=== PATIENT | female | born 1990 ===

== ENCOUNTER 2018-05-13 20:19 | Inpatient (IN) | payer OTHER ==
[2018-05-13 21:58] VITALS: BMI 32.5
[2018-05-13] MEDS ORDERED: Lactated Ringer's 1,000 ML IV ONE (22:18)
[2018-05-13 23:39] LABS: BASO % 0.2 % (0.0-2.0); EOS # 0.1 K/uL (0.0-0.7); EOS % 1.2 % (0.0-4.0); HEMOGLOBIN 11.9 g/dL (11.0-16.0); LYMPH # 1.9 K/uL (1.0-4.3); LYMPH % 15.7 % (20.0-40.0); MEAN CELL VOLUME 93.1 fL (81.0-99.0); MEAN CORPUSCULAR HEMOGLOBIN 31.6 pg (27.0-31.0); MEAN PLATELET VOLUME 9.5 fL (7.2-11.7); MONO # 1.2 K/uL (0.0-0.8); NEUT % 72.9 % (50.0-75.0); RBC 3.76 Mil/uL (3.80-5.20); RED CELL DISTRIBUTION WIDTH 13.4 % (11.5-14.5); WHITE BLOOD COUNT 12.3 K/uL (4.8-10.8)
--- NOTE | 2018-05-13 23:43 | OBHP ---
Datetime: 05/13/2018 23:40 IP Adm Impression: Term, intrauterine ; Ruptured Membranes IP Admit Plan: Admit to unit; Initiate labor protocol Pelvic Type - PN: Adequate Extremities - PN: Normal Abdomen - PN: Normal Back - PN: Normal Breast - PN: Not Done Lungs - PN: Normal Heart - PN: Normal Thyroid - PN: Normal Neurologic - PN: Normal HEENT - PN: Normal General - PN: Normal FHR - Baseline A Provider: 140's Membranes, Provider: Ruptured Pool Provider: Positive EGA AdmitDate IP: 38.3 Vital Signs Provider: Reviewed; Within Normal Limits IP Indication for Induction: Not Applicable IP Chief Complaint: Uterine contractions; Suspected ruptured membranes; Maternal discomfort NICHD Decel Fetus A IP Provider: None Genitourinary Exam: Normal DTRs - PN: Normal Datetime: 05/13/2018 22:45 Admit Comment, IP Provider: 27 yo female wit an IUP at 38 2/7 weeks and presents with C/O o f a gush of fluid at about 6PM tonite and continues and onset of irregular contractions. Admits to ad equate FM. + Nitrazine and + Pool of fluid in vagina Irregular contractions and early labor GBS Negative and Rh positive with + Antibody screen Pt states that she was referred to [employer] Bar[employer] Finisher and he stated that it was probably from blood brown sfusion at time of femur fracture and Surgery in the past. Admitted in early labor and will augment if indicated Anticipate a vaginal delivery Presentation-Admit: Vertex Amniotic Fluid Color, Provider: Clear Contraction Comments Provider: 3-5 MINS Gestation - Est Wks by US: 38 2/7 NICHD Variability Prov Fetus A: Moderate 6-25bpm NICHD Accel Fetus A IP Provider: 10X10 FHR Category Provider Fetus A: Category I Dilatation, Provider: 2 Effacement, Provider: 50 Station, Provider: -3
--- NOTE | 2018-05-13 23:55 | OBADHP ---
Datetime: 05/13/2018 23:40 Admit Comment, IP Provider: 27 yo female with an IUP at 38 2/7 weeks and presents with a Hx of gush of fluid at about 6PM this evening with onset of irregular contractions. Pt admits to continue L OF and denies VB. Admits to adequate FM. 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 Admitted in early labor and will augment if indicated Anticipate a vaginal delivery Pelvic Type - PN: Adequate Extremities - PN: Normal Abdomen - PN: Normal Back - PN: Normal Breast - PN: Not Done Lungs - PN: Normal Heart - PN: Normal Thyroid - PN: Normal Neurologic - PN: Normal HEENT - PN: Normal General - PN: Normal Presentation-Admit: Vertex FHR - Baseline A Provider: 140's Membranes, Provider: Ruptured Gestation - Est Wks by US: 38 2/7 weeks Pool Provider: Positive Vital Signs Provider: Reviewed; Within Normal Limits IP Chief Complaint: Uterine contractions; Suspected ruptured membranes; Maternal discomfort NICHD Variability Prov Fetus A: Moderate 6-25bpm NICHD Accel Fetus A IP Provider: 10X10 FHR Category Provider Fetus A: Category I NICHD Decel Fetus A IP Provider: None Genitourinary Exam: Normal DTRs - PN: Normal EGA AdmitDate IP: 38.3 IP Adm Impression: Term, intrauterine ; Ruptured Membranes IP Admit Plan: Admit to unit; Initiate labor protocol Datetime: 05/13/2018 22:45 Amniotic Fluid Color, Provider: Clear Contraction Comments Provider: 3-5 MINS IP Hx Assessment: records reviewed Dilatation, Provider: 2 Effacement, Provider: 50 Station, Provider: -3
[2018-05-14] LABS: ALB/GLOB RATIO 1.1 (1.0-2.1); ALBUMIN 3.6 g/dL (3.5-5.0); ALT/SGPT 98 U/L (9-52); AST/SGOT 45 U/L (14-36); BLOOD UREA NITROGEN 9 mg/dL (7-17); CALCIUM 9.6 mg/dl (8.6-10.4); GFR AFRICAN-AMERICAN > 60; GFR NON-AFRICAN AMERICAN > 60
[2018-05-14 00:10] LABS: BARBITURATES, UR NEGATIVE (NEGATIVE); BENZODIAZEPINES, UR NEGATIVE (NEGATIVE); OPIATES, UR NEGATIVE (NEGATIVE); PHENCYCLIDINE, UR NEGATIVE (NEGATIVE)
[2018-05-14] MEDS ORDERED: Bupivacaine HCl/FentaNYL Cit 100 ML EPI ONE ×2 (04:53→12:33)
[2018-05-14] MEDS ORDERED: Oxytocin 30 UNIT 30 UNITS/500 ML BAG IV SCH (06:30)
[2018-05-14 06:32] LABS: SQUAMOUS EPITHIAL 1 /hpf (0-5); URINE AMORPHOUS SEDIMENT RARE /ul (<OCC); URINE BILIRUBIN NEGATIVE (NEGATIVE); URINE BLOOD NEGATIVE (NEGATIVE); URINE CALCIUM OXALATE CRYSTALS FEW /hpf (<OCC); URINE CLARITY Turbid (Clear); URINE COLOR Amber (YELLOW); URINE GLUCOSE (UA) 1+ mg/dL (Normal); URINE LEUKOCYTE ESTERASE NEG Leu/uL (Negative); URINE PROTEIN 1+ mg/dL (NEGATIVE)
[2018-05-14] MEDS ORDERED: Lactated Ringer's 1,000 ML IV SCH (07:00)
--- NOTE | 2018-05-14 07:32 | OBPN ---
Datetime: 05/14/2018 06:07 IP Progress Impression: Normal progression of labor; Reactive non-stress test IP Informed Consent Obtain: Vaginal Delivery IP Progress Plan: Augmentation Nitrazine Provider: Positive Membranes, Provider: Ruptured Amniotic Fluid Color, Provider: Clear Contraction Comments Provider: Q3-4 FHR - Baseline A Provider: 140 Gestation - Est Wks by US: 38 38 3/7 Presentation-Admit: Vertex IP Progress Note Comment: 38 3/7 weeks and admitted with SROM since 1800 last PM Slow progress in labor and Pitocin started for Augmentation of labor GBS Negative Admitting labs reviewed and Midly low K and elevated SGOT and SGPT without elevated BP's Will follow her labs closely Hx of Right Femur Surgery at age 13 with some limitation to perform full leg abduction Hope for a Vaginal Delivery NICHD Accel Fetus A IP Provider: 10X10 FHR Category Provider Fetus A: Category I NICHD Variability Prov Fetus A: Moderate 6-25bpm Dilatation, Provider: 5 Effacement, Provider: 100 Station, Provider: -1 NICHD Decel Fetus A IP Provider: None Datetime: 05/13/2018 23:40 Pool Provider: Positive Vital Signs Provider: Reviewed; Within Normal Limits
--- NOTE | 2018-05-14 11:05 | OBPN ---
Datetime: 05/14/2018 10:56 IP Progress Impression Other: Protracted active phase of labor IP Procedures: Sterile Vag Exam IP Progress Plan: Continue present management; Augmentation; Anticipate Vaginal Delivery Membranes, Provider: Ruptured Contraction Comments Provider: 1-2 FHR - Baseline A Provider: 140 Gestation - Est Wks by US: 38w 3d Presentation-Admit: Vertex IP Progress Note Comment: Patient evalauted at 1000 hours; received in LDR#2 - S/P epidural. Report s no pain of Ctx, reports iincreasing vaginal pressure. (+) LOF. (+) FM P.E.: as above. Cervical exam - as above. Pitocin at 8 munits/min Assessment: 27 y.o. P0, 38w 3d PROM at 1800 hours ; now on pitocin. Protracted active phase o f labor. Afebrile, vital signs stable. Category 1 tracing. Clinically stable. Plan: 1) Re-examine in 2 hours. 2) Consider IUPC 3) Consider staring antibiotoics at ROM x 18 hours 4) Anticipate vaginal delivery NICHD Accel Fetus A IP Provider: 10X10 FHR Category Provider Fetus A: Category I NICHD Variability Prov Fetus A: Moderate 6-25bpm Dilatation, Provider: 7 Effacement, Provider: 100 Station, Provider: -1 NICHD Decel Fetus A IP Provider: None
[2018-05-14] MEDS ORDERED: AMPicillin 2 GM in Sodium Chloride 100 ML IVPB SCH (12:15)
[2018-05-14] MEDS ORDERED: BUPIVACAINE HCL EPI ONE (12:44)
[2018-05-14] MEDS ORDERED: Lidocaine 2% MPF (5 ml) Inj ONE (15:48)
[2018-05-14] MEDS ORDERED: Benzocaine/Menthol 20%-0.5% Topical Spray (60 ml) TOP PRN (16:12)
--- NOTE | 2018-05-14 16:20 | OBDS ---
DELIVERY PERSONNEL Delivery Doctor: José Luis Swan MD Scrub Nurse: Chey Reese OBT License Clerk: Yoanna Nix RN Anesthesiologist: MATERNAL INFORMATION Delivery Anesthesia: Epidural Medications in Delivery: Pitocin 30 units IV in 500 NS Estimated Blood Loss (ml): 300 Placenta Cultured: No Maternal Complications: None Provider Comments: Uncomplicated vaginal delivery. live male , DEXTER position, 's 9/9, weig ht 6lb 13oz over intact perineum. Infant's mouth and nose bulb-sucitoned on perineum. Umbilical cord doubly clamped and cut. placed on mother's abdomen for skin to skin. Spontaneous delivery of placenta - grossly intact; 3 vessels present Uterine exploration performed; uterus contracted and firm. Exam cervix, vagina and perineum - laceration as described above noted and repaired. Patient tolerated procedure well. and mother bonding; both in stable condition LABOR SUMMARY EDC: 05/25/2018 00:00 No. Babies in Womb: 1 Attempted: No Labor Anesthesia: None LABOR INFORMATION Reason for Induction: Not Applicable Onset of Labor: 05/14/2018 05:00 Complete Dilatation: 05/14/2018 14:46 Oxytocin: Augmentation Group B Beta Strep: Negative Antibiotics # of Doses: 1 Antibiotics Time of Last Dose: Ampicillin 2gm IV @ 1220 Steroids Given: None Reason Steroids Not Administered: Not Applicable MEMBRANES Membranes Rupture Method: Spontaneous Rupture of Membranes: 05/13/2018 18:00 Length of Rupture (hrs): 21.63 Amniotic Fluid Color: Clear Amniotic Fluid Amount: Small Amniotic Fluid Odor: Normal STAGES OF LABOR Stage 1 hrs: 9 Stage 1 min: 46 Stage 2 hrs: 0 Stage 2 min: 52 Stage 3 hrs: 0 Stage 3 min: 9 Total Time in Labor hrs: 10 Total Time in Labor min: 47 VAGINAL DELIVERY Episiotomy: None Laceration Extension: Second Degree Laceration Type: Vaginal Other Laceration: Right labial and vaginal Laceration Repair: Yes Laceration Repair Note: 3-0 Chromic in routine fashion - right labium and orin-lateral vaginal wal l Hemostasis assured Patient tolerated procedure well Patient in stable. condition Initial Vag Sponge Count: 10 Final Vag Sponge Count: 10 Initial Vag Sharps Count: 1 Final Vag Sharps Count: 1 Sponge Count Correct: Yes; Vaginal Sweep Performed Sharps Count Correct: Yes Count Comment: Correct BABY A INFORMATION Infant Delivery Date/Time: 05/14/2018 15:38 Method of Delivery: Vaginal Born in Route : No : N/A Forceps: N/A Vacuum Extraction: N/A Shoulder Dystocia : No SHOULDER DYSTOCIA BABY A Delivery Date/Time: 05/14/2018 15:38 PRESENTATION/POSITION BABY A Presentation: Cephalic Cephalic Presentation: Vertex Vertex Position: Right Occipital Anterior Breech Presentation: N/A PLACENTA INFORMATION BABY A Placenta Delivery Time : 05/14/2018 15:47 Placenta Method of Delivery: Spontaneous Placenta Status: Delivered SCORES BABY A Heart Rate 1 min: >100 bpm Resp Effort 1 min: Good Cry Reflex Irritability 1 min: Cough or Sneeze or Pulls Away Muscle Tone 1 min: Active Motion Color 1 min: Body [place], Extremities Blue Resuscitation Effort 1 min: N/A SCORE 1 MIN: 9 Heart Rate 5 min: >100 bpm Resp Effort 5 min: Good Cry Reflex Irritability 5 min: Cough or Sneeze or Pulls Away Muscle Tone 5 min: Active Motion Color 5 min: Body [place], Extremities Blue Resuscitation Effort 5 min: N/A SCORE 5 MIN: 9 INFORMATION BABY A Gestational Age at Delivery: 38.3 Gestational Status: Term Infant Outcome : Liveborn Infant Condition : Stable Sex: Male IDENTIFICATION/MEDS BABY A ID Band Number: [id number] ID Band Location: Left Leg; Left Arm Sensor Applied: Yes Sensor Number: [id number] Sensor Location : Cord Clamp Vitamin K Given : Not Given Erythromycin Given: Not Given WEIGHT/LENGTH BABY A Birthweight (gms): 3105 Infant Weight (lb): 6 Weight (oz): 13 Infant Length Inches: 19.50 Length cms: 49.5 CORD INFORMATION BABY A No. Cord Vessels: 3 Nuchal Cord : N/A Cord Blood Taken: Yes Suction: Mouth; Nose ASSESSMENT BABY A Infant Complications: None Physical Findings at Delivery: Within Normal Limits; Molding of the Head Infant Respirations: Appears Normal Marine Services Technician/ALS Called : No Transferred To: [facility]
[2018-05-14] MEDS: Oxycodone/Acetaminophen 5/325 mg Tab PO PRN (23:07)
[2018-05-15] MEDS: Multiple Vitamins Tab PO SCH (09:19)
[2018-05-15] MEDS: Oxycodone/Acetaminophen 5/325 mg Tab PO PRN ×3 (09:20→23:17)
[2018-05-15 09:25] LABS: BASO % 0.2 % (0.0-2.0); EOS # 0.1 K/uL (0.0-0.7); EOS % 0.7 % (0.0-4.0); HEMOGLOBIN 9.7 g/dL (11.0-16.0); LYMPH # 1.8 K/uL (1.0-4.3); LYMPH % 11.7 % (20.0-40.0); MEAN CORPUSCULAR HEMOGLOBIN 31.5 pg (27.0-31.0); MEAN CORPUSCULAR HGB CONC 33.5 g/dL (33.0-37.0); MEAN PLATELET VOLUME 9.7 fL (7.2-11.7); MONO # 1.1 K/uL (0.0-0.8); MONO % 6.8 % (0.0-10.0); NEUT # 12.6 K/uL (1.8-7.0); NEUT % 80.6 % (50.0-75.0); RBC 3.08 Mil/uL (3.80-5.20); RED CELL DISTRIBUTION WIDTH 14.2 % (11.5-14.5); WHITE BLOOD COUNT 15.7 K/uL (4.8-10.8)
[2018-05-15 14:57] LABS: ALB/GLOB RATIO 1.1 (1.0-2.1); ALBUMIN 2.8 g/dL (3.5-5.0); ALT/SGPT 73 U/L (9-52); AST/SGOT 34 U/L (14-36); BLOOD UREA NITROGEN 10 mg/dL (7-17); CALCIUM 8.8 mg/dl (8.6-10.4); GFR AFRICAN-AMERICAN > 60; GFR NON-AFRICAN AMERICAN > 60
[2018-05-15 15:26] LABS: HEPATITIS A IGM NEGATIVE (NEGATIVE); HEPATITIS B CORE AB NEGATIVE (NEGATIVE); HEPATITIS B SURFACE AG Negative (NEGATIVE); HEPATITIS C ANTIBODY Negative (NEGATIVE)
--- NOTE | 2018-05-15 23:17 | OBPPN ---
Datetime: 05/15/2018 13:30 PP Pain Prov: Within normal limits PP Nausea Prov: Denies PP Flatus Prov: Yes PP BM Prov: No PP Breasts Prov: Not Done PP Heart Prov: Normal PP Lungs Prov: Normal PP Abdomen/Uterus Prov: Normal PP Lochia Prov: Normal PP Vulva/Perineum Prov: Normal PP CVA Tenderness Prov: Normal PP Extremities Prov: Normal PP Progress Prov: Abnormal PP Comments Phys Exam Prov: Lochia normal difficulties but minimal to no water intake and minimal activity PP Impression Prov: difficulties; Pain PP Plan Prov: Continue present management; consult PP Impression Other Prov: Pain around stitches PP Progress Note Prov: PPD # 1 Slow Recovery but OK asistance given and encouraged Advised to increase po water intake Advance Care Requesting Epifoam for perineal care and ordered Hope to D/C home in AM
[2018-05-16 06:48] LABS: BASO % 0.4 % (0.0-2.0); EOS # 0.2 K/uL (0.0-0.7); EOS % 1.4 % (0.0-4.0); HEMOGLOBIN 9.5 g/dL (11.0-16.0); LYMPH # 2.4 K/uL (1.0-4.3); LYMPH % 20.5 % (20.0-40.0); MEAN CELL VOLUME 94.1 fL (81.0-99.0); MEAN CORPUSCULAR HEMOGLOBIN 32.4 pg (27.0-31.0); MEAN CORPUSCULAR HGB CONC 34.4 g/dL (33.0-37.0); MEAN PLATELET VOLUME 8.9 fL (7.2-11.7); MONO # 0.9 K/uL (0.0-0.8); MONO % 7.9 % (0.0-10.0); NEUT # 8.3 K/uL (1.8-7.0); NEUT % 69.8 % (50.0-75.0); RBC 2.95 Mil/uL (3.80-5.20); RED CELL DISTRIBUTION WIDTH 13.7 % (11.5-14.5); WHITE BLOOD COUNT 11.8 K/uL (4.8-10.8)
[2018-05-16 07:07] LABS: ALBUMIN 2.8 g/dL (3.5-5.0); ALT/SGPT 70 U/L (9-52); AST/SGOT 48 U/L (14-36); BLOOD UREA NITROGEN 13 mg/dL (7-17); CALCIUM 8.6 mg/dl (8.6-10.4); GFR AFRICAN-AMERICAN > 60; GFR NON-AFRICAN AMERICAN > 60
[2018-05-16 08:20] VITALS: BP 104/69; RESP 18
[2018-05-16] MEDS: Multiple Vitamins Tab PO SCH (09:02)
[2018-05-16] MEDS: Oxycodone/Acetaminophen 5/325 mg Tab PO PRN (09:02)
[2018-05-16] MEDS ORDERED: Hydrocortisone 2.5% Rectal Cream(30 gm) PR SCH (10:15)
[2018-05-16 19:16] VITALS: PULSE 95; TEMP 98; O2SAT 96
== END 2018-05-16 15:14 | disposition home or self-care (01) | DRG 372 ==
LOC: C.EROB 20:19 → C.4D 21:29 → C.4M 05-14 18:00
PROVIDERS: ADMIT Obstetrics & Gynecology; ATTEND Obstetrics & Gynecology
PROC: 10E0XZZ Delivery of Products of Conception, External Approach (ICD-10-PCS; principal; 2018-05-14)
PROC: 0KQM0ZZ Repair Perineum Muscle, Open Approach (ICD-10-PCS; 2018-05-14)
PROC: 0UQMXZZ Repair Vulva, External Approach (ICD-10-PCS; 2018-05-14)
DX: O42.02 Full-term premature rupture of membranes, onset of labor within 24 hours of rupture (principal); O70.1 Second degree perineal laceration during delivery; O62.2 Other uterine inertia; O70.0 First degree perineal laceration during delivery; Z3A.38 38 weeks gestation of pregnancy; Z37.0 Single live birth